=== PATIENT | female | born 1955 | race Caucasian/White ===

== ENCOUNTER 2018-03-06 10:08 | Emergency (ER) | payer OTHER ==
[~2018-03-06] VITALS: Ht 157.5 cm; Wt 115.7 kg
[~2018-03-06 10:08] MED LIST: ACET325 PO; ALBIPROI; ALBU.083IS IH; ALBU90OI INH; ALBU90OI6 INH; ALBUTEROL; ASCO250CH; ASCO500 PO; ASPI325; ASPI81CH; AVANDIA 8 MG QD; AZIT250 PO; BISA10S PR; BUDE6HFA INH; CALCAVITD PO; CALCIT950 PO; CARV25; CARV6.25 PO; CEPH500 PO; CVS DISPOSABLE399 ML PR; CYAN1000 PO; CYAN1000I IM; DOCCAL240; Desyrel150 MG; Desyrel150 MG PO; ERGO400 PO; ESOM20; ESTR1; ESTR2 PO; FENO600 PO; FLUSAL2505; FLUT220OIA INH; FURO20 PO; FURO40; Furosemide20 MG PO; GABA100 PO; GLUC500; GUAI600T33 PO; HYDACE5; HYDACE5 PO; HYDR1TAB94 PO; Humalog100 UNIT/1; INSDET100 SC; INSLI100I; INSLI100I SC; INSUASPI SC; INSULANI; INSULANI SC; INSULANPEN; INSULANPEN SC; Keflex500 MG PO; LANS30EC PO; LEVFLO500 PO; LEVSOD50 PO; LISI20 PO; LISI5; LISI5 PO; METF500 PO; METF500C PO; MONT10T; MONT10T PO; MULVITA; MULVITMIND PO; Milk Of Ma400 MG/5 M PO; Mucinex600 MG PO; NORT75 PO; NYST100TC TOP; Norco 10-325 T1 EACH PO; Norco 5-325 Ta1 EACH PO; OMEP20ER; OXYACE5T PO; OXYC5; PIOG45; PIOG45 PO; POTCHL10ER; POTCHL10ER PO; QVAIR; SALS500; SALS750; SALS750 PO; SANCTURA XR; SERT50 PO; SIMV10 PO; SIMV5 PO; SULTRIDS PO; SYMBACORT; TOLT4 PO; UNKNOWN INSULIN; VENL25; VENL75; VENL75ER PO; Ventolin Soln3 ML INH; [UNRECOGNIZED DRUG - CODE] PO; [UNRECOGNIZED DRUG - OTHER]; [UNRECOGNIZED DRUG - REMARK]
[2018-03-09] MEDS ORDERED: PIOG30 PO (10:41)
[2018-03-09] MEDS ORDERED: VENL37.5 PO (10:41)
[2018-03-09] MEDS ORDERED: Ferrous Sulfat325 M2 PO (10:43)
[2018-03-09] MEDS ORDERED: Advair Hfa 230-12 GM (10:46)
[2018-03-09] MEDS ORDERED: AMIT25 PO (10:46)
[2018-03-09] MEDS ORDERED: GUAI600T33 PO (10:48)
[2018-03-09] MEDS ORDERED: BENZ100A PO (12:04)
[2018-03-09] MEDS ORDERED: Vibramycin100 MG PO (12:04)
== END 2018-03-06 10:59 | disposition home or self-care (01) ==
LOC: ER 10:08
DX: S60.511A Abrasion of right hand, initial encounter (principal); Z88.1 Allergy status to other antibiotic agents; E66.9 Obesity, unspecified; E11.9 Type 2 diabetes mellitus without complications; Z87.01 Personal history of pneumonia (recurrent); Z88.8 Allergy status to other drugs, medicaments and biological substances; Z88.5 Allergy status to narcotic agent; Z88.0 Allergy status to penicillin; Z79.4 Long term (current) use of insulin; Z79.899 Other long term (current) drug therapy; Z23 Encounter for immunization; W18.30XA Fall on same level, unspecified, initial encounter; Y92.89 Other specified places as the place of occurrence of the external cause
CPT/HCPCS: 90471; 90714; 99282

== ENCOUNTER → 2018-06-11 | Outpatient (CLI) | payer OTHER ==
[~2018-06-11] MED LIST changes: +AMIT25 PO; +Advair Hfa 230-12 GM; +BENZ100A PO; +Ferrous Sulfat325 M2 PO; +PIOG30 PO; +VENL37.5 PO; +Vibramycin100 MG PO
[2018-06-13 15:09] LABS: HPV 16 Negative (Negative); HPV 18 Negative (Negative); HPV OTHER HR TYPES Negative (Negative)
== END | disposition home or self-care (01) ==
LOC: LAB 19:26 → LAB SHORT 19:26
PROVIDERS: Obstetrics & Gynecology Gynecology
DX: Z91.89 Other specified personal risk factors, not elsewhere classified (principal)
CPT/HCPCS: 87624; G0123

== ENCOUNTER 2018-12-15 21:42 | Emergency (ER) | payer OTHER ==
[~2018-12-15] VITALS: Ht 157.5 cm; Wt 113.4 kg
== END 2018-12-15 23:30 | disposition home or self-care (01) ==
LOC: ER 21:42
DX: S01.81XA Laceration without foreign body of other part of head, initial encounter (principal); E11.9 Type 2 diabetes mellitus without complications; J45.909 Unspecified asthma, uncomplicated; M19.90 Unspecified osteoarthritis, unspecified site; Z87.01 Personal history of pneumonia (recurrent); Z86.73 Personal history of transient ischemic attack (TIA), and cerebral infarction without residual deficits; Z88.0 Allergy status to penicillin; Z88.5 Allergy status to narcotic agent; Z88.8 Allergy status to other drugs, medicaments and biological substances; Z79.4 Long term (current) use of insulin; Z79.899 Other long term (current) drug therapy; W01.0XXA Fall on same level from slipping, tripping and stumbling without subsequent striking against object, initial encounter

== ENCOUNTER 2019-06-27 23:43 | Emergency (ER) | payer OTHER ==
[~2019-06-27] VITALS: Ht 157.5 cm; Wt 117.9 kg
[2019-06-28 00:16] LABS: BASOPHILS ABSOLUTE AUTO 0.03 K/mm3 (0.00-0.23); BASOPHILS PERCENT AUTO 0 % (0-2); EOSINOPHILS ABSOLUTE AUTO 0.08 K/mm3 (0.00-0.68); EOSINOPHILS PERCENT AUTO 1 % (0-6); Hematocrit 39.9 % (33.0-51.0); Hemoglobin 12.7 g/dL (11.5-16.0); IMMATURE GRAN ABSOLUTE AUTO 0.02 K/mm3 (0.00-0.10); IMMATURE GRAN PERCENT AUTO 0 % (0-1); LYMPHOCYTES ABSOLUTE AUTO 3.26 K/mm3 (0.84-5.20); LYMPHOCYTES PERCENT AUTO 43 % (21-46); MONOCYTES ABSOLUTE AUTO 0.45 K/mm3 (0.16-1.47); MONOCYTES PERCENT AUTO 6 % (4-13); Mean Corpuscular HGB Conc 31.8 g/dL (31.5-36.5); Mean Corpuscular Volume 94 fL (80-100); Mean Platelet Volume 10.9 fL (9.1-12.4); NEUTROPHILS ABSOLUTE AUTO 3.82 K/mm3 (1.96-9.15); NEUTROPHILS PERCENT AUTO 50 % (41-73); Platelet Count 232 K/mm3 (150-400); RDW Coefficient Variation 14.2 % (11.7-14.2); RDW Standard Deviation 49.1 fL (35.1-46.3); Red Blood Cell Count 4.23 M/mm3 (3.80-5.20); White Blood Cell Count 7.66 K/mm3 (4.00-11.30)
[2019-06-28 00:35] LABS: Alanine Aminotransfer (ALT/SGP 26 U/L (12-78); Albumin, Blood 3.5 g/dL (3.4-5.0); Albumin/Globulin Ratio 0.8 (0.8-1.8); Alk Phos 95 U/L (50-136); Anion Gap 6 mmol/L (6-16); Aspartate Aminotrans (AST/SGOT 28 U/L (12-37); Bilirubin, Total 0.2 mg/dL (0.1-1.0); Blood Urea Nitrogen 12 mg/dL (8-24); Bun/Creatinine Ratio 12.7 (12.0-20.0); CO2, Blood 30 mmol/L (21-32); Calcium, Blood 9.1 mg/dL (8.5-10.1); Chloride, Blood 105 mmol/L (98-108); Creatinine, Blood 0.95 mg/dL (0.40-1.00); Globulin, Blood 4.6 g/dL (2.2-4.0); Glomerular Filtration Rate >60 (60-); Glucose, Blood 119 mg/dL (70-99); Potassium, Blood 4.4 mmol/L (3.5-5.5); Sodium, Blood 141 mmol/L (136-145); Total Protein, Blood 8.1 g/dL (6.4-8.2)
[2019-06-28 01:53] LABS: Source, Urine Clean Catch
[2019-06-28] MEDS ORDERED: TRULICITY0.75 MG/0. SQ (01:53)
[2019-06-28 01:58] LABS: Bilirubin, Urine Neg (Neg); Blood, Urine 1+ (Neg); Glucose Qualitative, Urine Neg (Neg); Ketones, Urine Neg (Neg); Leukocyte Esterase, Urine 3+ (Neg); Nitrite, Urine Pos (Neg); Protein, Urine Neg (Neg); Urobilinogen, Urine NORM (Normal); pH, Urine 6.5 (5.0-8.0)
[2019-06-28 02:09] LABS: Appearance, Urine Clear (Clear); Color, Urine Yellow (P-Yellow)
[2019-06-28 02:10] LABS: Bacteria Many /hpf; Red Blood Cells, Urine 0-2 /hpf (0-2); Squamous Epithelial Cells Few /hpf (Few)
[2019-06-28] MEDS ORDERED: CEPH500 PO (02:15)
== END 2019-06-28 02:58 | disposition home or self-care (01) ==
LOC: ER 23:43
PROVIDERS: Emergency Medicine
DX: N39.0 Urinary tract infection, site not specified (principal); E11.9 Type 2 diabetes mellitus without complications; J45.909 Unspecified asthma, uncomplicated; Z87.01 Personal history of pneumonia (recurrent); E66.9 Obesity, unspecified; Z68.42 Body mass index [BMI] 45.0-49.9, adult; Z88.0 Allergy status to penicillin; Z88.1 Allergy status to other antibiotic agents; Z88.5 Allergy status to narcotic agent; Z88.8 Allergy status to other drugs, medicaments and biological substances; Z79.899 Other long term (current) drug therapy; Z79.4 Long term (current) use of insulin
CPT/HCPCS: 36415; 80053; 81001; 83690; 85025; 87077; 87086; 87186; 96374; 99284-25; A9270-GY; J2405

== ENCOUNTER 2019-09-15 12:08 | Day surgery (SDC) | payer OTHER ==
[~2019-09-15] VITALS: Ht 157.5 cm; Wt 121.7 kg
[~2019-09-15 12:08] MED LIST changes: +TRULICITY0.75 MG/0. SQ
--- NOTE | 2019-09-15 13:04 | NUR ---
09/15/19 1304 Tesha Darnell 1 IV MISS IN RFA BY LETICIA VCJAVIERVE 1 GOOD IV IN RFA BY LETICIA PT TOW
== END 2019-09-15 16:00 | disposition home or self-care (01) ==
LOC: ORSCSDS 12:08
PROVIDERS: Internal Medicine Gastroenterology
PROC: 0DB58ZX Excision of Esophagus, Via Natural or Artificial Opening Endoscopic, Diagnostic (ICD-10-PCS; principal; 2019-09-15 13:30)
PROC: 0D758ZZ Dilation of Esophagus, Via Natural or Artificial Opening Endoscopic (ICD-10-PCS; principal; 2019-09-15 13:30)
DX: R13.10 Dysphagia, unspecified (principal); Z98.84 Bariatric surgery status; I10 Essential (primary) hypertension; E78.00 Pure hypercholesterolemia, unspecified; M79.7 Fibromyalgia; E11.9 Type 2 diabetes mellitus without complications; J45.909 Unspecified asthma, uncomplicated; G47.33 Obstructive sleep apnea (adult) (pediatric); K21.9 Gastro-esophageal reflux disease without esophagitis; E66.01 Morbid (severe) obesity due to excess calories; Z68.41 Body mass index [BMI] 40.0-44.9, adult; Z79.4 Long term (current) use of insulin; Z79.899 Other long term (current) drug therapy
CPT/HCPCS: 82947; 88305; J2704; J7120

== ENCOUNTER 2019-12-18 18:35 | Emergency (ER) | payer OTHER ==
[~2019-12-18] VITALS: Ht 157.5 cm; Wt 117.9 kg
== END 2019-12-18 22:25 | disposition home or self-care (01) ==
LOC: ER 18:35
DX: S60.041A Contusion of right ring finger without damage to nail, initial encounter (principal); E11.9 Type 2 diabetes mellitus without complications; J45.909 Unspecified asthma, uncomplicated; E78.5 Hyperlipidemia, unspecified; M19.90 Unspecified osteoarthritis, unspecified site; I25.10 Atherosclerotic heart disease of native coronary artery without angina pectoris; Z79.51 Long term (current) use of inhaled steroids; Z79.4 Long term (current) use of insulin; Z79.899 Other long term (current) drug therapy; Z88.0 Allergy status to penicillin; Z88.6 Allergy status to analgesic agent; Z88.8 Allergy status to other drugs, medicaments and biological substances; W01.0XXA Fall on same level from slipping, tripping and stumbling without subsequent striking against object, initial encounter
CPT/HCPCS: 73070; 73130; 99283-25

== ENCOUNTER → 2020-03-22 | Outpatient (CLI) | payer OTHER | END | disposition home or self-care (01) | LOC: LAB SHORT 12:48 → LAB 12:48 | DX: G89.4 Chronic pain syndrome (principal); Z79.899 Other long term (current) drug therapy | CPT/HCPCS: G0480 ==

== ENCOUNTER → 2020-04-04 | Outpatient (CLI) | payer OTHER ==
[2020-04-04 11:59] LABS: BASOPHILS ABSOLUTE AUTO 0.04 K/mm3 (0.00-0.23); BASOPHILS PERCENT AUTO 1 % (0-2); EOSINOPHILS PERCENT AUTO 1 % (0-6); Hematocrit 37.8 % (33.0-51.0); Hemoglobin 12.5 g/dL (11.5-16.0); IMMATURE GRAN ABSOLUTE AUTO 0.01 K/mm3 (0.00-0.10); IMMATURE GRAN PERCENT AUTO 0 % (0-1); LYMPHOCYTES ABSOLUTE AUTO 2.74 K/mm3 (0.84-5.20); LYMPHOCYTES PERCENT AUTO 38 % (21-46); MONOCYTES ABSOLUTE AUTO 0.49 K/mm3 (0.16-1.47); MONOCYTES PERCENT AUTO 7 % (4-13); Mean Corpuscular HGB 30.4 pg (26.0-34.0); Mean Corpuscular HGB Conc 33.1 g/dL (31.5-36.5); Mean Corpuscular Volume 92 fL (80-100); Mean Platelet Volume 10.9 fL (9.1-12.4); NEUTROPHILS ABSOLUTE AUTO 3.86 K/mm3 (1.96-9.15); NEUTROPHILS PERCENT AUTO 53 % (41-73); Platelet Count 207 K/mm3 (150-400); RDW Coefficient Variation 13.6 % (11.7-14.2); RDW Standard Deviation 45.7 fL (35.1-46.3); Red Blood Cell Count 4.11 M/mm3 (3.80-5.20); White Blood Cell Count 7.24 K/mm3 (4.00-11.30)
[2020-04-04 12:10] LABS: Alanine Aminotransfer (ALT/SGP 20 U/L (12-78); Albumin, Blood 3.2 g/dL (3.4-5.0); Albumin/Globulin Ratio 0.7 (0.8-1.8); Alk Phos 99 U/L (40-126); Anion Gap 15 mmol/L (6-16); Aspartate Aminotrans (AST/SGOT 24 U/L (12-37); Bilirubin, Total 0.3 mg/dL (0.1-1.0); Blood Urea Nitrogen 10 mg/dL (8-24); Bun/Creatinine Ratio 9.6 (12.0-20.0); CO2, Blood 25 mmol/L (21-32); Calcium, Blood 8.7 mg/dL (8.5-10.1); Chloride, Blood 104 mmol/L (98-108); Creatinine, Blood 1.04 mg/dL (0.40-1.00); Globulin, Blood 4.5 g/dL (2.2-4.0); Glomerular Filtration Rate 54 (60-); Glucose, Blood 144 mg/dL (70-99); Potassium, Blood 4.5 mmol/L (3.5-5.5); Sodium, Blood 144 mmol/L (136-145); Total Protein, Blood 7.7 g/dL (6.4-8.2)
[2020-04-04 12:12] LABS: Troponin I <0.017 ng/mL (0.000-0.040)
== END | disposition home or self-care (01) ==
LOC: LAB SHORT 11:25 → LAB EV 11:25
PROVIDERS: Physician Assistant
DX: R07.9 Chest pain, unspecified (principal)
CPT/HCPCS: 80053; 83690; 83880; 84484; 85025; 85379

== ENCOUNTER → 2020-04-05 | Outpatient (CLI) | payer OTHER | END | disposition home or self-care (01) | LOC: LAB EV 12:05 → LAB SHORT 12:05 | DX: R07.9 Chest pain, unspecified (principal) | CPT/HCPCS: 85379 ==

== ENCOUNTER 2020-11-11 08:20 | Day surgery (SDC) | payer OTHER ==
[~2020-11-11] VITALS: Ht 157.5 cm; Wt 128.3 kg
[~2020-11-11 08:20] MED LIST changes: +ADVAIR HFA 230-28 GM INH; +ASPI81CH PO; -Advair Hfa 230-12 GM; +CYCL10 PO; +NOVOLOG100 UNIT/3 SC; +TOUJEO MAX300 UNIT/2 SC
--- NOTE | 2020-11-11 09:23 | NUR ---
Ambulatory in Day Surgery Patient states colon prep results clear. History, Chart, Medications and Allergies reviewed before start of procedure. Patient confirms NPO status and agrees with scheduled surgery. CHEM BG 142.
--- NOTE | 2020-11-11 09:51 | NUR ---
11/11/20 0951 Teresita Everett MONITOR INTACT WITH CONTINUOUS PULSE OXIMETRY AND INTERMITTENT BP.
--- NOTE | 2020-11-11 11:17 | NUR ---
PT ASSISTED TO SIDE OF BED AND INTO CHAIR. PT ASSISTED TO DRESS. IV D/C'D, WNL. DRESSING APPLIED. PT WAITING FOR MEDICAL TRANSPORT. SITTING AT SIDE OF BED AND READING. DENIES NEEDS.
== END 2020-11-11 22:46 | disposition home or self-care (01) ==
LOC: ORSCMMR 08:20
PROVIDERS: Internal Medicine Gastroenterology
PROC: 0DBH8ZX Excision of Cecum, Via Natural or Artificial Opening Endoscopic, Diagnostic (ICD-10-PCS; principal; 2020-11-11 10:00)
DX: Z12.11 Encounter for screening for malignant neoplasm of colon (principal); D12.0 Benign neoplasm of cecum; K64.4 Residual hemorrhoidal skin tags; Z86.010 Personal history of colon polyps; E11.9 Type 2 diabetes mellitus without complications; E78.00 Pure hypercholesterolemia, unspecified; I10 Essential (primary) hypertension; M79.7 Fibromyalgia; J45.909 Unspecified asthma, uncomplicated; G47.33 Obstructive sleep apnea (adult) (pediatric); E66.9 Obesity, unspecified; Z68.43 Body mass index [BMI] 50.0-59.9, adult; Z86.73 Personal history of transient ischemic attack (TIA), and cerebral infarction without residual deficits; Z79.82 Long term (current) use of aspirin; Z79.899 Other long term (current) drug therapy; Z79.84 Long term (current) use of oral hypoglycemic drugs
CPT/HCPCS: 82947; 88305; J2704; J7120

== ENCOUNTER → 2021-12-14 | Outpatient (CLI) | payer OTHER ==
[2021-12-17 12:46] LABS: Stool Occult Bld Immuno 1 Negative (NEGATIVE)
== END | disposition home or self-care (01) ==
LOC: LAB SHORT 06:01
PROVIDERS: Hospitalist
DX: Z12.11 Encounter for screening for malignant neoplasm of colon (principal)
CPT/HCPCS: 82274

== ENCOUNTER 2023-07-26 09:48 | Day surgery (SDC) | payer OTHER ==
[~2023-07-26] VITALS: Ht 157.5 cm; Wt 121.4 kg
[2023-07-26 10:23] VITALS: BP 117/53
[2023-07-26] MEDS ORDERED: FORMOTEROL20 MCG/2 M (10:44)
[2023-07-26] MEDS ORDERED: ALBU90OI6 (10:48)
[2023-07-26] MEDS ORDERED: ALENDRONATE SOD35 MG (10:50)
[2023-07-26] MEDS ORDERED: CYCL10 PO (10:51)
[2023-07-26] MEDS ORDERED: VENL37.5ER PO (10:53)
[2023-07-26] MEDS ORDERED: PREG25 PO (10:54)
[2023-07-26] MEDS ORDERED: FURO20 PO (10:55)
[2023-07-26] MEDS ORDERED: SPIR25 PO (10:56)
--- NOTE | 2023-07-26 11:07 | NUR ---
07/26/23 [address] DEWITT'S ANESTHESIA REPORT
[2023-07-26 11:30] VITALS: BP 106/57
[2023-07-26 11:55] VITALS: BP 110/70
[2023-07-26 11:59] VITALS: BP 113/54
--- NOTE | 2023-07-26 12:06 | NUR ---
DISCHARGE NOTE PT A&OX4, BREATHING RA, VSS, TOLERATING PO FLUIDS. PT ABDOMEN IS SOFT AND NON TENDER. PT ABLE TO DRESS INDEPENDENTLY C RN IN ROOM. Discharge instructions reviewed with patient. Patient verbalizes understanding. Copy given to patient to take home.PT DISCHARGED TO HOME USING [facility].
== END 2023-07-26 12:07 | disposition home or self-care (01) ==
LOC: ORSCMMR 09:48 → ORD 11:15 → ORSCMMR 11:15 → ORD 11:30 → ORSCMMR 12:07
PROVIDERS: Internal Medicine Gastroenterology
PROC: 0DB58ZX Excision of Esophagus, Via Natural or Artificial Opening Endoscopic, Diagnostic (ICD-10-PCS; principal; 2023-07-26 11:15)
DX: K21.9 Gastro-esophageal reflux disease without esophagitis (principal); K22.70 Barrett's esophagus without dysplasia; I10 Essential (primary) hypertension; E11.9 Type 2 diabetes mellitus without complications; E03.9 Hypothyroidism, unspecified; J44.9 Chronic obstructive pulmonary disease, unspecified; I25.10 Atherosclerotic heart disease of native coronary artery without angina pectoris; E66.01 Morbid (severe) obesity due to excess calories; Z68.42 Body mass index [BMI] 45.0-49.9, adult; Z86.73 Personal history of transient ischemic attack (TIA), and cerebral infarction without residual deficits; Z79.4 Long term (current) use of insulin; Z79.84 Long term (current) use of oral hypoglycemic drugs
CPT/HCPCS: 82947; 88305; J2704; J7120

== ENCOUNTER 2023-12-12 12:24 | Emergency (ER) | payer OTHER ==
[~2023-12-12] VITALS: Ht 157.5 cm; Wt 114.8 kg
[~2023-12-12 12:24] MED LIST changes: +ALBU90OI6; +ALENDRONATE SOD35 MG; +FORMOTEROL20 MCG/2 M; +PREG25 PO; +SPIR25 PO; +VENL37.5ER PO
[2023-12-12 15:19] VITALS: BP 130/64
== END 2023-12-12 15:10 | disposition home or self-care (01) ==
LOC: ER 12:24
DX: S70.01XA Contusion of right hip, initial encounter (principal); M25.511 Pain in right shoulder; W22.8XXA Striking against or struck by other objects, initial encounter; Z88.8 Allergy status to other drugs, medicaments and biological substances; Z88.0 Allergy status to penicillin; Z88.1 Allergy status to other antibiotic agents; Z79.899 Other long term (current) drug therapy; Z79.4 Long term (current) use of insulin; Z79.82 Long term (current) use of aspirin; E11.9 Type 2 diabetes mellitus without complications; E78.5 Hyperlipidemia, unspecified
CPT/HCPCS: 73030; 73502; 99283-25

== ENCOUNTER 2025-01-19 15:20 | Emergency (ER) | payer OTHER ==
[~2025-01-19] VITALS: Ht 157.5 cm; Wt 114.3 kg
[2025-01-19 15:50] LABS: BASOPHILS ABSOLUTE AUTO 0.06 K/mm3 (0.00-0.23); BASOPHILS PERCENT AUTO 1 % (0-2); EOSINOPHILS ABSOLUTE AUTO 0.14 K/mm3 (0.00-0.68); EOSINOPHILS PERCENT AUTO 2 % (0-6); Hematocrit 42.2 % (33.0-51.0); Hemoglobin 13.9 g/dL (11.5-16.0); IMMATURE GRAN ABSOLUTE AUTO 0.03 K/mm3 (0.00-0.10); IMMATURE GRAN PERCENT AUTO 0 % (0-1); LYMPHOCYTES ABSOLUTE AUTO 2.93 K/mm3 (0.84-5.20); LYMPHOCYTES PERCENT AUTO 37 % (21-46); MONOCYTES ABSOLUTE AUTO 0.53 K/mm3 (0.16-1.47); MONOCYTES PERCENT AUTO 7 % (4-13); Mean Corpuscular HGB 31.1 pg (26.0-34.0); Mean Corpuscular HGB Conc 32.9 g/dL (31.5-36.5); Mean Corpuscular Volume 94 fL (80-100); Mean Platelet Volume 9.9 fL (9.1-12.4); NEUTROPHILS ABSOLUTE AUTO 4.24 K/mm3 (1.96-9.15); NEUTROPHILS PERCENT AUTO 53 % (41-73); Platelet Count 328 K/mm3 (150-400); RDW Coefficient Variation 12.8 % (11.7-14.2); RDW Standard Deviation 43.6 fL (35.1-46.3); Red Blood Cell Count 4.47 M/mm3 (3.80-5.20); White Blood Cell Count 7.93 K/mm3 (4.00-11.30)
[2025-01-19 16:22] LABS: Albumin, Blood 3.3 g/dL (3.4-5.0); Albumin/Globulin Ratio 0.8 (0.8-1.8); Bilirubin, Total 0.4 mg/dL (0.1-1.0); Bun/Creatinine Ratio 20.2 (12.0-20.0); Creatinine, Blood 1.09 mg/dL (0.40-1.00); Globulin, Blood 4.3 g/dL (2.2-4.0); Total Protein, Blood 7.6 g/dL (6.4-8.2)
[2025-01-19 16:32] LABS: Influenza A, PCR NEGATIVE (NEGATIVE); Influenza B, PCR NEGATIVE (NEGATIVE); Resp Syncytial Virus, PCR NEGATIVE (NEGATIVE); SARS-Cov-2 (COVID-19) PCR, MMC NEGATIVE (NEGATIVE)
[2025-01-19 17:11] VITALS: BP 123/77
== END 2025-01-19 17:12 | disposition home or self-care (01) ==
LOC: ER 15:20
PROVIDERS: Student in an Organized Health Care Education/Training Program
DX: R05.9 Cough, unspecified (principal); E11.9 Type 2 diabetes mellitus without complications; J45.909 Unspecified asthma, uncomplicated; E78.5 Hyperlipidemia, unspecified; Z88.5 Allergy status to narcotic agent; Z88.1 Allergy status to other antibiotic agents; Z88.0 Allergy status to penicillin; Z79.899 Other long term (current) drug therapy; Z79.84 Long term (current) use of oral hypoglycemic drugs; Z79.4 Long term (current) use of insulin
CPT/HCPCS: 0241U; 71046; 80053; 83880; 85025; 93005; 93010; 99284-25

== ENCOUNTER → 2025-02-16 | Outpatient (CLI) | payer OTHER ==
[2025-02-16 12:25] LABS: U Amphetamine Screen Not Detected; U Barbituate Screen Not Detected; U Benzodiazapine Screen Not Detected; U Buprenorphine Screen Not Detected; U Cannabinoids Screen Not Detected; U Cocaine Screen Not Detected; U Methadone Screen Not Detected; U Methamphetamine Screen Not Detected; U Opiates Screen Not Detected; U Oxycodone Screen Not Detected; U Phencyclidine Screen Not Detected
== END | disposition home or self-care (01) ==
LOC: LAB 10:37 → LAB SHORT 10:37
PROVIDERS: Hospitalist
DX: G89.4 Chronic pain syndrome (principal); M46.04 Spinal enthesopathy, thoracic region; M79.18 Myalgia, other site

== ENCOUNTER → 2025-06-09 | Outpatient (CLI) | payer OTHER ==
[2025-06-09 17:24] LABS: Creatinine, Urine Random 144.0 mg/dL (27.00-270.00); Microalb/Creat Ratio UR, Rand 4.271 mg/g (0.000-30.000); Microalbumin, Random Urine 6.15 mg/L (0.000-20.000)
== END ==
LOC: LAB 10:00 → LAB SHORT 10:00
PROVIDERS: Internal Medicine
DX: E11.22 Type 2 diabetes mellitus with diabetic chronic kidney disease (principal); E11.42 Type 2 diabetes mellitus with diabetic polyneuropathy; E11.51 Type 2 diabetes mellitus with diabetic peripheral angiopathy without gangrene; E11.59 Type 2 diabetes mellitus with other circulatory complications; E11.69 Type 2 diabetes mellitus with other specified complication; E66.01 Morbid (severe) obesity due to excess calories; Z68.42 Body mass index [BMI] 45.0-49.9, adult; Z79.4 Long term (current) use of insulin
CPT/HCPCS: 82043; 82570

== ENCOUNTER 2025-08-30 14:06 | Inpatient (IN) | payer OTHER ==
[~2025-08-30] VITALS: Ht 157.5 cm; Wt 101.2 kg
[2025-08-30 15:15] LABS: BASOPHILS ABSOLUTE AUTO 0.04 K/mm3 (0.00-0.23); BASOPHILS PERCENT AUTO 0 % (0-2); EOSINOPHILS ABSOLUTE AUTO 0.01 K/mm3 (0.00-0.68); EOSINOPHILS PERCENT AUTO 0 % (0-6); Hematocrit 40.0 % (33.0-51.0); Hemoglobin 13.4 g/dL (11.5-16.0); IMMATURE GRAN ABSOLUTE AUTO 0.09 K/mm3 (0.00-0.10); IMMATURE GRAN PERCENT AUTO 1 % (0-1); LYMPHOCYTES ABSOLUTE AUTO 0.99 K/mm3 (0.84-5.20); LYMPHOCYTES PERCENT AUTO 6 % (21-46); MONOCYTES ABSOLUTE AUTO 0.89 K/mm3 (0.16-1.47); MONOCYTES PERCENT AUTO 6 % (4-13); Mean Corpuscular HGB Conc 33.5 g/dL (31.5-36.5); Mean Corpuscular Volume 93 fL (80-100); NEUTROPHILS ABSOLUTE AUTO 14.23 K/mm3 (1.96-9.15); NEUTROPHILS PERCENT AUTO 88 % (41-73); NRBC ABSOLUTE 0.00 K/mm3 (0.00-0.02); NRBC Auto 0.0 /100 WBC (0.0-0.2); Platelet Count 190 K/mm3 (150-400); RDW Coefficient Variation 12.5 % (11.7-14.2); RDW Standard Deviation 43.1 fL (35.1-46.3)
[2025-08-30 15:41] LABS: Alanine Aminotransfer (ALT/SGP 15.0 U/L (12-78); Albumin, Blood 3.2 g/dL (3.4-5.0); Albumin/Globulin Ratio 0.7 (0.8-1.8); Anion Gap 12.0 mmol/L (3-11); Aspartate Aminotrans (AST/SGOT 10.0 U/L (12-37); Bilirubin, Total 0.9 mg/dL (0.1-1.0); Blood Urea Nitrogen 20.0 mg/dL (8-24); CO2, Blood 26.0 mmol/L (21-32); Calcium, Blood 8.6 mg/dL (8.5-10.1); Chloride, Blood 99.0 mmol/L (98-108); Creatinine, Blood 0.98 mg/dL (0.40-1.00); Globulin, Blood 4.7 g/dL (2.2-4.0); Glucose, Blood 240.0 mg/dL (70-99); Potassium, Blood 4.6 mmol/L (3.5-5.5); Sodium, Blood 132.0 mmol/L (136-145); Total Protein, Blood 7.9 g/dL (6.4-8.2)
[2025-08-30 16:19] LABS: Influenza A, PCR NEGATIVE (NEGATIVE); Influenza B, PCR NEGATIVE (NEGATIVE); Resp Syncytial Virus, PCR NEGATIVE (NEGATIVE); SARS-Cov-2 (COVID-19) PCR, MMC NEGATIVE (NEGATIVE)
[2025-08-30] MEDS ORDERED: CefTRIAXone Sodium 2,000 MG in NS 100 ML IV ONE (18:40)
[2025-08-30] MEDS ORDERED: Simvastatin20 MG PO (18:56)
[2025-08-30] MEDS ORDERED: FREESTYLE LIBR1 EA10 MC (18:57)
[2025-08-30] MEDS ORDERED: EUTHYROX75 MC1 PO (18:57)
[2025-08-30] MEDS ORDERED: FLU VACC TS2025(65UP)/MF59C/PF 45 MCG/0.5 ML SYRINGE IM SCH (20:05)
[2025-08-30] MEDS ORDERED: Ondansetron HCl 2 MG / ML 2ML Vial IV PRN (20:10)
[2025-08-30] MEDS ORDERED: Ipratropium/Albuterol SulF 2.5-0.5MG/3 ML Amp INH PRN (20:10)
[2025-08-30] MEDS ORDERED: NS 1,000 ML IV SCH (20:30)
[2025-08-30 20:36] VITALS: BP 111/54
[2025-08-30] MEDS ORDERED: Lisinopril2.5 MG PO (20:48)
[2025-08-30] MEDS ORDERED: ALENDRONATE SOD35 M1 PO (20:52)
[2025-08-30] MEDS ORDERED: Enoxaparin 40 MG/0.4 ML SYR SC SCH (21:00)
[2025-08-30] MEDS ORDERED: Aspirin325 MG PO (21:19)
[2025-08-30] MEDS ORDERED: MOUNJARO12.5 MG/0. SC (22:27)
[2025-08-30] MEDS ORDERED: Norco 5-325 Ta1 EACH PO (22:29)
[2025-08-31 00:03] VITALS: BP 126/57
[2025-08-31] MEDS ORDERED: HYDROcodone 5-APAP 325 TAB PO PRN (01:15)
[2025-08-31 01:47] LABS: Source, Urine Clean Catch
[2025-08-31 02:01] LABS: Bilirubin, Urine Neg (Neg); Glucose Qualitative, Urine Neg (Neg); Ketones, Urine Neg (Neg); Leukocyte Esterase, Urine 2+ (Neg); Protein, Urine 1+ (Neg); Specific Gravity, Urine 1.010 (1.003-1.022); Urobilinogen, Urine 1+ (Normal)
[2025-08-31 02:24] LABS: Color, Urine Pale Yellow (P-Yellow)
[2025-08-31 02:25] LABS: Red Blood Cells, Urine Not Seen /hpf (0-2)
[2025-08-31 04:08] VITALS: BP 129/67
--- NOTE | 2025-08-31 05:44 | NUR ---
SHIFT SUMMARY ED ADMIT 08/30/25 FOR RLL PNA. PT ARRIVES IN STABLE CONDITION. STANDS & TRANSFERS INDEPENDENTLY FROM WC TO BED. A&OX4. SATURATING >91% ON RA. TELE: SINUS TACHYCARDIA, 104 BPM. WHEEZING, IMPROVES WELL W/ NEBS. DISCUSSED WITH PT PLAN TO SPEAK WITH HER SPECIALIST, DR. VALENZUELA, TO SEE IF HOME NEBS ARE ADVISED. 1L NS X1 RUNNING AT 75 ML/HR IN LFA IV. SPUTUM AND UA SENT FOR CULTURE. RESUMED DIET (CONSISTENT CARB) SINCE PT HAS ARRIVED STABLE, AND RESUMED PT'S HOME REGIMEN OF [place] FOR CHRONIC PAIN IN LOW BACK.
[2025-08-31 05:56] LABS: BASOPHILS ABSOLUTE AUTO 0.03 K/mm3 (0.00-0.23); BASOPHILS PERCENT AUTO 0 % (0-2); EOSINOPHILS ABSOLUTE AUTO 0.01 K/mm3 (0.00-0.68); EOSINOPHILS PERCENT AUTO 0 % (0-6); Hematocrit 37.0 % (33.0-51.0); Hemoglobin 12.7 g/dL (11.5-16.0); IMMATURE GRAN ABSOLUTE AUTO 0.04 K/mm3 (0.00-0.10); IMMATURE GRAN PERCENT AUTO 0 % (0-1); LYMPHOCYTES ABSOLUTE AUTO 2.14 K/mm3 (0.84-5.20); LYMPHOCYTES PERCENT AUTO 15 % (21-46); MONOCYTES ABSOLUTE AUTO 0.87 K/mm3 (0.16-1.47); MONOCYTES PERCENT AUTO 6 % (4-13); Mean Corpuscular HGB Conc 34.3 g/dL (31.5-36.5); Mean Corpuscular Volume 93 fL (80-100); NEUTROPHILS ABSOLUTE AUTO 10.94 K/mm3 (1.96-9.15); NEUTROPHILS PERCENT AUTO 78 % (41-73); NRBC ABSOLUTE 0.00 K/mm3 (0.00-0.02); NRBC Auto 0.0 /100 WBC (0.0-0.2); Platelet Count 170 K/mm3 (150-400); RDW Coefficient Variation 12.4 % (11.7-14.2); RDW Standard Deviation 42.7 fL (35.1-46.3)
[2025-08-31 06:11] LABS: Alanine Aminotransfer (ALT/SGP 11.0 U/L (12-78); Albumin, Blood 2.6 g/dL (3.4-5.0); Albumin/Globulin Ratio 0.6 (0.8-1.8); Anion Gap 10.0 mmol/L (3-11); Aspartate Aminotrans (AST/SGOT 10.0 U/L (12-37); Bilirubin, Total 0.6 mg/dL (0.1-1.0); Blood Urea Nitrogen 23.0 mg/dL (8-24); CO2, Blood 25.0 mmol/L (21-32); Calcium, Blood 7.9 mg/dL (8.5-10.1); Chloride, Blood 104.0 mmol/L (98-108); Creatinine, Blood 0.96 mg/dL (0.40-1.00); Globulin, Blood 4.3 g/dL (2.2-4.0); Glucose, Blood 205.0 mg/dL (70-99); Potassium, Blood 4.1 mmol/L (3.5-5.5); Sodium, Blood 135.0 mmol/L (136-145); Total Protein, Blood 6.9 g/dL (6.4-8.2)
[2025-08-31] MEDS ORDERED: Insulin Human Lispro 100 Units/ML 3ML Syringe SC SCH ×3 (07:30→16:30)
[2025-08-31 07:33] VITALS: BP 127/65
[2025-08-31 11:27] VITALS: BP 124/57
[2025-08-31] MEDS ORDERED: Insulin Glargine-Yfgn 100 Unit/mL 3 ML SYR SC SCH (14:00)
[2025-08-31] MEDS ORDERED: Insulin Glargine 100 Unit/ML 3 ML SYR SC SCH (14:11)
[2025-08-31 15:10] VITALS: BP 140/70
--- NOTE | 2025-08-31 15:57 | NUR ---
SHIFT SUMMARY PATIENT IS A&OX4, PLEASANT AND COOPERATIVE WITH CARE. SHE IS ABLE TO MAKE HER NEEDS KNOWN AND CALLS APPROPRIATELY. APPROPRIATE INSULIN REGIME ORDERED BY DR. CHAN TODAY. PATIENT HAD A SHOWER TODAY. SHE AMBULATES IN THE ROOM WITH A CAN WHICH IS HER BASELINE. O2 >90% ON ROOM AIR. NO ACUTE EVENTS THIS SHIFT. BED IS LOW AND LOCKED, CALL LIGHT IN REACH.
[2025-08-31] MEDS ORDERED: CefTRIAXone Sodium 1,000 MG in NS 100 ML IV SCH (19:00)
[2025-08-31] MEDS ORDERED: NS 250 ML IV PRN (20:00)
[2025-08-31 20:11] VITALS: BP 149/71
[2025-08-31] MEDS ORDERED: Lactobacil 2-S.Thermo-Bifido 1 1 Cap PO SCH (21:00)
[2025-09-01 00:03] VITALS: BP 137/56
[2025-09-01 04:06] VITALS: BP 139/64
[2025-09-01 05:38] LABS: BASOPHILS ABSOLUTE AUTO 0.04 K/mm3 (0.00-0.23); BASOPHILS PERCENT AUTO 0 % (0-2); EOSINOPHILS ABSOLUTE AUTO 0.02 K/mm3 (0.00-0.68); EOSINOPHILS PERCENT AUTO 0 % (0-6); Hematocrit 35.6 % (33.0-51.0); Hemoglobin 11.9 g/dL (11.5-16.0); IMMATURE GRAN ABSOLUTE AUTO 0.04 K/mm3 (0.00-0.10); IMMATURE GRAN PERCENT AUTO 0 % (0-1); LYMPHOCYTES ABSOLUTE AUTO 1.73 K/mm3 (0.84-5.20); LYMPHOCYTES PERCENT AUTO 16 % (21-46); MONOCYTES ABSOLUTE AUTO 0.73 K/mm3 (0.16-1.47); MONOCYTES PERCENT AUTO 7 % (4-13); Mean Corpuscular HGB Conc 33.4 g/dL (31.5-36.5); Mean Corpuscular Volume 91 fL (80-100); NEUTROPHILS ABSOLUTE AUTO 7.96 K/mm3 (1.96-9.15); NEUTROPHILS PERCENT AUTO 76 % (41-73); NRBC ABSOLUTE 0.00 K/mm3 (0.00-0.02); NRBC Auto 0.0 /100 WBC (0.0-0.2); Platelet Count 195 K/mm3 (150-400); RDW Coefficient Variation 12.3 % (11.7-14.2); RDW Standard Deviation 41.2 fL (35.1-46.3)
--- NOTE | 2025-09-01 06:02 | NUR ---
SUPERVISOR ADULT EDUCATION SUMMARY PT A&OX4, VSS. ABLE TO COMMUNICATE NEEDS APPROPRIATELY. PT HAS BEEN ASLEEP FOR MOST OF THE NIGHT. CHEST RISE/RESPIRATIONS NOTED. UP INTERMITTENTLY THROUGHOUT THE NIGHT TO USE RESTROOM IND W/ CANE. PT USES CANE AT BASELINE. REMAINS ON TELE. SR AT 109 W/ PACS. REMAINS ON CONT PULSE OX AND RA, O2 SATS >=92%. PT CONTINUES TO COUGH OCCASIONALLY, BUT DENIES HAVING A PRODUCTIVE COUGH. BED RAILS UP X 2, BED IN LOWEST POSITION, BED WHEELS LOCKED, PERSONAL BELONGINGS AND CALL LIGHT WITHIN REACH FOR SAFETY.
[2025-09-01 06:08] LABS: Alanine Aminotransfer (ALT/SGP 9.0 U/L (12-78); Albumin, Blood 2.8 g/dL (3.4-5.0); Albumin/Globulin Ratio 0.7 (0.8-1.8); Anion Gap 12.0 mmol/L (3-11); Aspartate Aminotrans (AST/SGOT 9.0 U/L (12-37); Bilirubin, Total 0.5 mg/dL (0.1-1.0); Blood Urea Nitrogen 17.0 mg/dL (8-24); CO2, Blood 22.0 mmol/L (21-32); Calcium, Blood 8.3 mg/dL (8.5-10.1); Chloride, Blood 106.0 mmol/L (98-108); Creatinine, Blood 0.91 mg/dL (0.40-1.00); Globulin, Blood 4.1 g/dL (2.2-4.0); Glucose, Blood 210.0 mg/dL (70-99); Magnesium, Blood 1.8 mg/dL (1.6-2.4); Phosphorus, Blood 2.3 mg/dL (2.5-4.9); Potassium, Blood 3.8 mmol/L (3.5-5.5); Sodium, Blood 136.0 mmol/L (136-145); Total Protein, Blood 6.9 g/dL (6.4-8.2)
[2025-09-01 08:01] VITALS: BP 138/63
[2025-09-01] MEDS ORDERED: Polyethylene Glycol 3350 17 gm PO PRN (11:15)
[2025-09-01 11:52] VITALS: BP 130/65
[2025-09-01 16:01] VITALS: BP 133/56
--- NOTE | 2025-09-01 18:49 | NUR ---
SUMMARY- PT A/O X4, INDEPENDANT TO BATHROOM, STEADY ON FEET. MIN DYSPNEA WITH EXERTION. PT'S LUNGS CLEAR UPPER, DIM BASES, COARSE R BASE THIS AM WITH EXP WHEEZE FREQ UPON EXP. HARSH COUGH. ENC COUGH AND DEEP BREATH AND PEP TX. PT STATES STICKY CORNELL SECRETIONS. STARTED MUCININEX- ALSO STARTED ON SOLUMEDROL LOW DOSE. CLARIFIED OK TO GIVE BEFORE DOSE BECAUSE PT HAS ALLERGY TO PREDNISONE. SO FAR NO ITCHING OR RASH TO SPEEK OF. WILL CONT TO KALE. PT TOLERATING FOOD AND FLUID. STARTED ON BOWEL CARE.LAST VM 08/29. WILL REPORT TO NOC RN
[2025-09-01] MEDS ORDERED: Insulin Glargine 100 Unit/ML 3 ML SYR SC SCH (19:00)
[2025-09-01 19:55] VITALS: BP 150/83
[2025-09-01] MEDS ORDERED: Enoxaparin 40 MG/0.4 ML SYR SC SCH (21:00)
[2025-09-02 00:09] VITALS: BP 145/89
[2025-09-02 05:15] VITALS: BP 140/74
[2025-09-02 05:54] LABS: Hematocrit 40.2 % (33.0-51.0); Hemoglobin 13.5 g/dL (11.5-16.0); Mean Corpuscular HGB Conc 33.6 g/dL (31.5-36.5); Mean Corpuscular Volume 92 fL (80-100); NRBC ABSOLUTE 0.00 K/mm3 (0.00-0.02); NRBC Auto 0.0 /100 WBC (0.0-0.2); Platelet Count 267 K/mm3 (150-400); RDW Coefficient Variation 12.2 % (11.7-14.2); RDW Standard Deviation 41.1 fL (35.1-46.3)
--- NOTE | 2025-09-02 06:18 | NUR ---
SALAD COUNTER ATTENDANT SUMMARY PT A&OX4, VSS. ABLE TO COMMUNCIATE NEEDS APPROPRIATELY. PT HAS BEEN ASLEEP FOR MOST OF THE SHIFT. CHEST RISE/RESPIRATIONS NOTED. UP INTERMITTENTLY TO USE RESTROOM INDEPENDENTLY W/ CANE. CANE USE AT BASELINE. REMAINS ON TELE. SR AT 92. ON CONT PULSE OX AND RA, O2 SATS >=92%. PT STATES SHE USES A CPAP AT HOME, BUT REFUSES CPAP USE HERE DESPITE VERBALIZING UNDERSTANDING ON EDUCATION. PT ENDORSES OCCASIONAL PRODUCTIVE COUGH W/ YELLOW SPUTUM THIS EVENING. BED RAILS UP X 2, BED IN LOWEST POSITION, BED WHEELS LOCKED, PERSONAL BELONGINGS AND CALL LIGHT WITHIN REACH FOR SAFETY.
[2025-09-02 06:24] LABS: Anion Gap 11.0 mmol/L (3-11); Blood Urea Nitrogen 24.0 mg/dL (8-24); CO2, Blood 24.0 mmol/L (21-32); Calcium, Blood 9.2 mg/dL (8.5-10.1); Chloride, Blood 101.0 mmol/L (98-108); Creatinine, Blood 0.84 mg/dL (0.40-1.00); Glucose, Blood 326.0 mg/dL (70-99); Potassium, Blood 4.0 mmol/L (3.5-5.5); Sodium, Blood 132.0 mmol/L (136-145)
[2025-09-02 07:02] LABS: BAND PERCENT MAN 3 % (0-8); BASOPHILS ABSOLUTE MAN 0.00 K/mm3 (0.00-0.23); BASOPHILS PERCENT MAN 0 % (0-2); EOSINOPHILS ABSOLUTE MAN 0.00 K/mm3 (0.00-0.68); EOSINOPHILS PERCENT MAN 0 % (0-6); LYMPHOCYTES ABSOLUTE MAN 0.58 K/mm3 (0.84-5.20); LYMPHOCYTES PERCENT MAN 6 % (21-46); MONOCYTES ABSOLUTE MAN 0.00 K/mm3 (0.16-1.47); MONOCYTES PERCENT MAN 0 % (4-13); NEUTROPHILS ABSOLUTE MAN 9.20 K/mm3 (1.96-9.15); SEG NEUTROPHILS PERCENT MAN 91 % (41-73)
[2025-09-02 07:41] VITALS: BP 159/90
[2025-09-02 11:26] VITALS: BP 146/85
[2025-09-02] MEDS ORDERED: CEFP200 PO (14:16)
[2025-09-02] MEDS ORDERED: GUAI600T33 PO (14:17)
[2025-09-02] MEDS ORDERED: METPRE4 PO (14:18)
[2025-09-02] MEDS ORDERED: AZIT250 PO (14:19)
[2025-09-02] MEDS ORDERED: VISBIOME 112.51 EACH PO (14:22)
--- NOTE | 2025-09-02 14:38 | NUR ---
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 SENT HOME WITH BELONGINGS.
== END 2025-09-02 13:37 | disposition home or self-care (01) | DRG 194 ==
LOC: ER 14:06 → ERHOLD 19:30 → MEDS 19:30 → ENPENDDIS 09-02 11:53 → MEDS 09-02 13:37
PROVIDERS: Hospitalist; Student in an Organized Health Care Education/Training Program; ADMIT Internal Medicine
DX: J18.9 Pneumonia, unspecified organism (principal); E87.1 Hypo-osmolality and hyponatremia; J45.901 Unspecified asthma with (acute) exacerbation; E78.5 Hyperlipidemia, unspecified; J45.909 Unspecified asthma, uncomplicated; M19.90 Unspecified osteoarthritis, unspecified site; E11.65 Type 2 diabetes mellitus with hyperglycemia; G89.4 Chronic pain syndrome; Z79.4 Long term (current) use of insulin; Z90.710 Acquired absence of both cervix and uterus; Z79.51 Long term (current) use of inhaled steroids; Z79.82 Long term (current) use of aspirin; Z79.84 Long term (current) use of oral hypoglycemic drugs; Z79.85 Long-term (current) use of injectable non-insulin antidiabetic drugs; Z79.890 Hormone replacement therapy; Z79.899 Other long term (current) drug therapy; Z88.1 Allergy status to other antibiotic agents; Z88.8 Allergy status to other drugs, medicaments and biological substances; Z88.5 Allergy status to narcotic agent; Z95.5 Presence of coronary angioplasty implant and graft; Z98.890 Other specified postprocedural states
CPT/HCPCS: 36415; 71046; 80048; 80053; 81001; 82947; 83605; 83735; 83880; 84100; 84145; 85025; 87070; 87077; 87086; 87185; 87186; 87205; 87637; 93005; 93010; 94640; 94664; 94762; 96365; 96368; 97116; 97161; 99285-25; A9270; J0456; J0696; J1650; J1815; J2919; J7030; J7050